=== PATIENT | female | born 1965 | race Caucasian/White ===

== ENCOUNTER 2018-04-30 15:18 | Emergency (ER) | payer SELFPAY ==
[~2018-04-30] VITALS: Ht 154.9 cm; Wt 65.8 kg
--- NOTE | 2018-04-30 15:21 | NUR ---
Patient ambulated to bed 11. RN evaluating patient at bedside.
[2018-04-30 15:23] VITALS: BP 129/68
--- NOTE | 2018-04-30 15:31 | NUR ---
PATIENT PRESENTS TO ED WITH THE CHIEF C/O HIVES ALL OVER THE BODY THAT STARTED TODAY. HIVES STARTED FRON BACK OF THE NECK. PT STATES IT'S ITCHY AND PAINFUL. INSTRUCTED NOT TO SCRATCH. DENIES ANY ALLERGIES. PT HAD TAKEN B-COMPLEX THIS MORNING. DENIES N/V/D; SKIN IS PINK/WARM/DRY. AAOX4 WITH EVEN AND STEADY GAIT; LUNGS CLEAR BL; HR EVEN AND REGULAR; PT DENIES ANY FEVER, CP. NO SOB, OR COUGH AT THIS TIME; PATIENT STATES PAIN OF 8/10 AT THIS TIME; VSS; PATIENT POSITIONED FOR COMFORT; HOB ELEVATED; BEDRAILS UP X2; BED DOWN. ER MD MADE AWARE OF PT STATUS.
[2018-04-30] MEDS ORDERED: diphenhydrAMINE 50 MG/ML VIAL IVP ONE (16:00)
[2018-04-30] MEDS ORDERED: methylPREDNISolone SS 125 MG in WATER STERILE 2 ML IV ONE (16:00)
[2018-04-30] MEDS ORDERED: FAMOTIDINE 20 MG TAB PO ONE (16:00)
--- NOTE | 2018-04-30 17:47 | NUR ---
HIVES LOOKS BETTER THAN BEFORE. PT STATED SHE SHE FEELING BETTER. VS WNL.
[2018-04-30 17:51] VITALS: BP 122/62
--- NOTE | 2018-04-30 17:52 | NUR ---
Patient discharged with v/s stable. Written and verbal after care instructions given and explained. Patient alert, oriented and verbalized understanding of instructions. Ambulatory with steady gait. All questions addressed prior to discharge. ID band removed. Patient advised to follow up with PMD. Rx of ZYRTEC, PEPCID given. Patient educated on indication of medication including possible reaction and side effects. Opportunity to ask questions provided and answered.
== END 2018-04-30 17:52 | disposition home or self-care (01) ==
LOC: MED 15:18
DX: T78.40XA Allergy, unspecified, initial encounter (principal); R03.0 Elevated blood-pressure reading, without diagnosis of hypertension; F17.200 Nicotine dependence, unspecified, uncomplicated; X58.XXXA Exposure to other specified factors, initial encounter
CPT/HCPCS: 96374; 96375; 99283; J1200; J2930